=== PATIENT | male | born 1975 | race Caucasian/White ===

== ENCOUNTER → 2023-09-03 | Emergency (ER) | payer OTHER ==
[~2023-09-03] VITALS: Ht 177.8 cm; Wt 68.0 kg
[~2023-09-03] MED LIST: CEFTRIAXONE SODIUM 2,000 MG VIAL IV ONE; TETANUS & DIPHTHERIA TOX,ADULT 0.5 ML VIAL IM STA
== END | disposition home or self-care (01) ==
LOC: ER 08:06
DX: S81.821A Laceration with foreign body, right lower leg, initial encounter (principal); V19.3XXA Pedal cyclist (driver) (passenger) injured in unspecified nontraffic accident, initial encounter; Y93.55 Activity, bike riding; Y92.89 Other specified places as the place of occurrence of the external cause

== ENCOUNTER 2023-09-10 08:51 | Emergency (ER) | payer OTHER ==
[~2023-09-10] VITALS: Ht 177.8 cm; Wt 72.6 kg
== END 2023-09-10 09:53 | disposition home or self-care (01) ==
LOC: ER 08:51
DX: Z48.02 Encounter for removal of sutures (principal)

== ENCOUNTER 2023-09-15 08:22 | Emergency (ER) | payer OTHER ==
[~2023-09-15] VITALS: Ht 177.8 cm; Wt 72.6 kg
== END 2023-09-15 09:03 | disposition home or self-care (01) ==
LOC: ER 08:22
DX: Z48.02 Encounter for removal of sutures (principal)